=== PATIENT | female | born 1975 ===

== ENCOUNTER 2024-11-25 12:43 | Outpatient (REF) | payer BC, SELFPAY ==
[2024-11-25 14:42] LABS: HCT 40.7 % (36.0-46.0); HGB 13.2 g/dL (11.2-15.7); MCH 29.6 pg (27.0-33.0); MCHC 32.4 % (32.0-36.0); MCV 91 fL (80-95); MPV 9.1 fL (8.0-11.0); Platelet Count 222 10^3/uL (130-400); RBC 4.46 10^6/uL (3.93-5.22); RDW 12.7 % (11.7-14.6); RDW-SD 42.3 fL; WBC 5.66 10^3/uL (4.4-10.8)
[2024-11-25 15:26] LABS: ALT 25 U/L (14-59); AST 18 U/L (15-37); Albumin 4.1 g/dL (3.4-5.0); Alkaline Phosphatase 80 U/L (46-116); Anion Gap 8.9 mmol/L (3-11); BUN 16 mg/dL (7-18); Bilirubin, Total 0.5 mg/dL (0.2-1.0); CO2 28.1 mmol/L (21.0-32.0); Calculated LDL 137 mg/dL (<100); Chloride 102 mmol/L (98-107); Cholesterol 225 mg/dL (<200); Estimated GFR 68.63 (mL/min/1.73m2); Glucose 98 mg/dL (74-106); HDL Cholesterol 73 mg/dL (>or=50); Potassium 4.4 mmol/L (3.5-5.1); Sodium 139 mmol/L (136-145); TSH 0.82 uIU/mL (0.36-3.74); Total Protein 7.2 g/dL (6.4-8.2); Triglyceride 79 mg/dL (<150)
== END 2024-11-25 12:44 | disposition home or self-care (01) ==
LOC: NCHCN 12:43
PROVIDERS: Visit Provider Family Medicine
DX: E66.9 Obesity, unspecified (principal); R53.83 Other fatigue; E78.5 Hyperlipidemia, unspecified
CPT/HCPCS: 80053; 80061; 85027; 84443